=== PATIENT | female | born 1980 | race Two or more races ===

== ENCOUNTER 2017-07-24 00:42 | Emergency (ER) | payer OTHER ==
[~2017-07-24] VITALS: Ht 162.6 cm; Wt 74.2 kg
[2017-07-24] MEDS ORDERED: methylPREDNISolone SOD SUCC 125 MG/2 ML ONE (02:09)
[2017-07-24] MEDS ORDERED: FAMOTIDINE 20 MG/2 ML ONE (02:09)
[2017-07-24] MEDS ORDERED: DIPHENHYDRAMINE 50 MG/ML, 1ML ONE ×2 (02:09→02:56)
[2017-07-24] MEDS ORDERED: methylPREDNISolone SOD SUCC 125 MG/2 ML IVPush ONE (02:30)
[2017-07-24] MEDS ORDERED: SODIUM CHLORIDE 0.9% 1,000ML IVBOLUS ONE (02:30)
[2017-07-24] MEDS ORDERED: DIPHENHYDRAMINE 50 MG/ML, 1ML IVPush ONE (02:30)
[2017-07-24] MEDS ORDERED: FAMOTIDINE 20 MG/2 ML IVPush ONE (02:30)
[2017-07-24 02:33] VITALS: BP 102/63
== END 2017-07-24 03:22 | disposition home or self-care (01) ==
LOC: ED 02:00
DX: L50.0 Allergic urticaria (principal); T50.995A Adverse effect of other drugs, medicaments and biological substances, initial encounter; Y92.89 Other specified places as the place of occurrence of the external cause
CPT/HCPCS: 87081; 87880; 96361; 96374; 96375; 99285; J1200; J2930; J7030; S0028